=== PATIENT | female | born 1945 | race Caucasian/White ===

== ENCOUNTER 2024-04-30 09:39 | Day surgery (SDC) | payer OTHER ==
[2024-04-26 13:43] VITALS: BMI 35.2
[2024-04-30] MEDS: ceFAZolin SODIUM 1 GM VIAL IVPB ONE ×2 (07:28→08:40)
[2024-04-30] MEDS: BUPIVACAINE HCL/PF 0.25% (2.5MG/ML) 10 ML VIAL IJ ONE ×4 (07:29→09:03)
[~2024-04-30 09:39] MED LIST: BUPIVACAINE HCL/PF 0.25% (2.5MG/ML) 10 ML VIAL ONE; CEFOXITIN SODIUM 1 GM IVPB ONE; HYDROmorphone HCl 2 MG/ML VIAL ONE; MIDAZOLAM HCL 2 MG/2 ML SINGLE DOSE VIAL ONE; PROPOFOL 20 ML ONE; ROCURONIUM BROMIDE 50 MG/5 ML SYRINGE ONE; SODIUM CHLORIDE 0.9% P/F 10 ML VIAL IJ ONE; cefOXitin SODIUM 2 GM VIAL (RESTRICTED TO ID) IVPB ONE
[2024-04-30] MEDS ORDERED: ACETAMINOPHEN INJECTION 100 ML IVPB ONE ×2 (10:09→15:33)
[2024-04-30] MEDS ORDERED: TRANEXAMIC ACID 1000 MG/10 ML VIAL ONE (10:09)
[2024-04-30] MEDS ORDERED: ROCURONIUM BROMIDE 50 MG/5 ML SYRINGE ONE (10:55)
[2024-04-30] MEDS ORDERED: ONDANSETRON 4 MG/2 ML VIAL ONE (10:55)
[2024-04-30] MEDS ORDERED: DEXAMETHASONE SOD PHOSPHATE 4 MG/1 ML VIAL ONE (10:55)
[2024-04-30] MEDS ORDERED: SUGAMMADEX SODIUM 200 MG/2 ML VIAL ONE (12:20)
[2024-04-30] MEDS ORDERED: KETOROLAC TROMETHAMINE 15 MG/ML VIAL IVPUSH PRN (12:48)
[2024-04-30] MEDS ORDERED: HYDROmorphone HCl 2 MG/ML VIAL IVPB PRN (12:48)
[2024-04-30] MEDS ORDERED: ACETAMINOPHEN 325 MG TABLET (FP) PO PRN (12:56)
[2024-04-30] MEDS ORDERED: oxyCODONE HCL 5 MG TABLET PO PRN (12:56)
[2024-04-30] MEDS ORDERED: METOCLOPRAMIDE HCL INJECTION 10 MG/2 ML VIAL ONE (13:58)
[2024-04-30] MEDS ORDERED: HEPARIN NA (PORCINE) 5,000 UNITS/ML 1ML VIAL ONE (13:59)
[2024-04-30] MEDS ORDERED: ONDANSETRON 4 MG/2 ML VIAL IVPUSH SCH (14:00)
[2024-04-30] MEDS: METOCLOPRAMIDE HCL INJECTION 10 MG/2 ML VIAL IVPUSH SCH (14:00)
[2024-04-30] MEDS ORDERED: diazePAM CARPU-JECT 10 MG/2 ML DISP.SYRIN ONE (14:43)
[2024-04-30] MEDS: diazePAM CARPU-JECT 10 MG/2 ML DISP.SYRIN IVPUSH PRN (14:45)
[2024-04-30] MEDS: ACETAMINOPHEN 1000 MG/100 ML BAG IVPB SCH ×2 (15:35→15:42)
[2024-04-30] MEDS: LACTATED RINGERS SOLUTION 1,000 ML/1,000 ML INFUS.BAG IV SCH (15:35)
[2024-04-30] MEDS: CEFAZOLIN SODIUM 2 GM in DEXTROSE 5%-WATER 100 ML IVPB ONE (15:42)
[2024-04-30 16:53] VITALS: RESP 18
[2024-04-30] MEDS ORDERED: METOCLOPRAMIDE HCL INJECTION 10 MG/2 ML VIAL IVPUSH SCH (17:00)
[2024-04-30] MEDS: ONDANSETRON 4 MG/2 ML VIAL IVPUSH SCH (18:03)
[2024-04-30] MEDS ORDERED: HYDROmorphone HCL CARPU-JECT 2 MG/1 ML DISP.SYRIN IVPB PRN (23:48)
[2024-05-01 06:28] VITALS: TEMP 97.7
[2024-05-01 08:48] LABS: BASO % 0.2 % (0-2.0); HEMOGLOBIN 11.5 GM/dL (10.7-15.3); LYMPH % 6.1 % (8-40); MCH 30.1 pg (25.7-33.7); MCHC 33.8 g/dl (32.0-36.0); MEAN CELL VOLUME 88.9 fl (80-96); MEAN PLT VOLUME 8.7 fl (7.5-11.1); MONO % 6.9 % (3.8-10.2); NEUT % 86.8 % (42.8-82.8); PLATELET COUNT 415 10^3/uL (134-434); RBC 3.82 M/mm3 (3.60-5.2); WHITE BLOOD COUNT 13.9 K/mm3 (4.0-10.0)
[2024-05-01 09:02] LABS: POTASSIUM 4.3 mmol/L (3.5-5.1)
[2024-05-01 09:06] LABS: BLOOD UREA NITROGEN 24.2 mg/dL (7-18); CALCIUM 8.6 mg/dL (8.5-10.1)
[2024-05-01 09:10] LABS: CREATININE 1.2 mg/dL (0.55-1.3)
[2024-05-01] MEDS: metoPROLOL SUCCINATE 25 MG TAB.SR.24H (FP) PO SCH (11:03)
[2024-05-01] MEDS: ENOXAPARIN NA (PORCINE) 40 MG/0.4 ML DISP.SYRIN SQ SCH (11:03)
[2024-05-01] MEDS: HYDROCHLOROTHIAZIDE 25 MG TABLET (FP) PO SCH (11:03)
[2024-05-01] MEDS: PANTOPRAZOLE SODIUM 40 MG VIAL IVPUSH SCH (11:04)
[2024-05-01] MEDS: amLODIPine BESYLATE 5 MG TABLET (FP) PO SCH (11:06)
[2024-05-01 17:08] VITALS: BP 135/72; PULSE 76
== END 2024-05-01 17:26 | disposition home or self-care (01) ==
LOC: JASUSAT 09:39 → SUATTDRO 09:39 → EDSTATUS 13:00 → J8W 16:07 → JASUSAT 05-01 17:26
PROVIDERS: ATTEND Internal Medicine
PROC: 0DV44ZZ Restriction of Esophagogastric Junction, Percutaneous Endoscopic Approach (ICD-10-PCS; principal; 2024-04-30 08:00)
DX: K44.9 Diaphragmatic hernia without obstruction or gangrene (principal)
CPT/HCPCS: 43281; S2900; 36415; 74220-TC-FY; 80048; 85025; 86850; 86900; 86901; 94760; J0131; J1644